=== PATIENT | male | born 1970 | race Caucasian/White ===

== ENCOUNTER 2016-04-19 20:51 | Emergency (ER) | payer OTHER ==
[2016-04-19 20:58] VITALS: BP 126/95
[2016-04-19] MEDS ORDERED: metroNIDAZOLE TAB* 250 MG PO ONE (23:06)
[2016-04-19] MEDS ORDERED: Ciprofloxacin TAB* 500 MG PO ONE (23:06)
--- NOTE | 2016-04-19 23:55 | UC ---
Aleta Bond Erika, scribed for Marge Leong DO on 04/19/16 at 2225 . Abdominal Pain Male HPI - HPI Summary HPI Summary: Patient is a 45-year-old male presenting to [facility] with a CC of LLQ abdominal pain for the past 3 days. Currently, he rates pain a 3/10, and describes it as dull/aching. Pain does not radiate. He reports that the pain feels the same as the last time he had diverticulitis. He reports 5-6 flare ups of diverticulitis in the 6 years since he has been diagnosed, 3-4 of which required antibiotics - he states he takes only cipro usually. He states that he came into [facility] because his temperature increased from 97.2 to 98.6. Pt also reports he had blood in his stool a few days ago, and he has a Hx hemorrhoids. His PCP sent in rx for suppository. 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 Pt denies N/V/D and urinary symptoms. He does report a slight cough and headache from a recent cold. Hx HTN. PSHx cholecystectomy. FHx HTN, DM, prostate CA. - History of Current Complaint Chief Complaint: UCAbdominalPain Stated Complaint: ABD PAIN Time Seen by Provider: 04/19/16 22:11 Hx Obtained From: Patient Onset/Duration: Gradual Onset, Lasting Days, Still Present Timing: Constant Severity Currently: Mild Pain Intensity: 3 Pain Scale Used: 0-10 Numeric Location: Discrete At: LLQ Radiates: No Character: Aching, Dull Aggravating Factor(s):: Food Alleviating Factor(s): Rest - bowel rest Associated Signs And Symptoms: Positive: Blood in Stool. Negative: Diaphoresis , Fever, Cough, Chest Pain, Back Pain, Constipation, Urinary Symptoms, Nausea, Vomiting, Diarrhea - Allergies/Home Medications Allergies/Adverse Reactions: Allergies Allergy/AdvReac Type Severity Reaction Status Date / Time Pseudoephedrine Allergy Swelling Verified 04/19/16 20:58 [From Sudafed] Of Face,Lips,& Throat Ibuprofen AdvReac Intermediate lowered BP Verified 04/19/16 20:58 Home Medications: Home Medications Lisinopril/HCTZ 20/12.5(NF) [Zestoretic 20/12.5(NF)] 1 tab PO DAILY 04/19/16 [ History Confirmed 04/19/16] PMH/Surg Hx/FS Hx/Imm Hx Endocrine History Of: Denies: Diabetes, Thyroid Disease Cardiovascular History Of: Reports: Hypertension Denies: Cardiac Disorders Respiratory History Of: Denies: COPD, Asthma GI/ History Of: Denies: Ulcer, Renal Disease - Surgical History Surgical History: Yes Surgery Procedure, Year, and Place: surgery to left foot - 5 pins to repair break. gallbladder - Family History Known Family History: Positive: Hypertension, Diabetes, Other - HIGH CHOLESTEROL , prostate CA - Social History Occupation: Employed Full-time Lives: With Family Alcohol Use: Occasionally Alcohol Amount: 1 beer weekly Substance Use Type: None Smoking Status (MU): Never Smoked Tobacco - Immunization History Most Recent Tetanus Shot: 2009 Review of Systems Constitutional: Negative Skin: Negative Eyes: Negative ENT: Negative Respiratory: Cough - recoverying from cold Cardiovascular: Negative Gastrointestinal: Abdominal Pain Genitourinary: Negative Motor: Negative Neurovascular: Negative Musculoskeletal: Negative Neurological: Headache Psychological: Negative All Other Systems Reviewed And Are Negative: Yes Physical Exam Triage Information Reviewed: Yes Appearance: Well-Appearing, No Pain Distress, Well-Nourished Vital Signs: Initial Vital Signs Temp 98.3 F 04/19/16 20:53 Pulse 97 04/19/16 20:53 Resp 16 04/19/16 20:53 BP 126/95 04/19/16 20:53 Pulse Ox 97 04/19/16 20:53 Vital Signs Reviewed: Yes Eyes: Positive: Conjunctiva Clear. Negative: Discharge ENT: Positive: Hearing grossly normal. Negative: Muffled/hoarse voice Neck: Positive: Supple, Nontender Respiratory: Positive: Lungs clear, Normal breath sounds, No respiratory distress, No accessory muscle use Cardiovascular: Positive: RRR, No Murmur Abdomen Description: Positive: Soft, Other: - LLQ point tenderness. Negative: Distended, Guarding Bowel Sounds: Positive: Present Musculoskeletal Exam: Normal Neurological: Positive: Alert, Muscle Tone Normal Psychological Exam: Normal Psychological: Positive: Age Appropriate Behavior Skin Exam: Other - Warm, dry, normal color Diagnostics - Laboratory Diagnostic Studies Completed/Ordered: UA negative Abd Pain Male Course/Dx - Course Course Of Treatment: Pt declined rectal exam - Differential Dx/Clinical Impression Differential Diagnosis/HQI/PQRI: Constipation, Diverticulitis, Renal Colic, Ureteral Stone, Urinary Tract Infection, Other - ibs Provider Diagnoses: diverticulitis Discharge - Discharge Plan Condition: Stable Disposition: HOME Prescriptions: Ciprofloxacin HCl [Cipro] 500 mg PO BID #13 tab Metronidazole [Flagyl 500 MG TAB] 500 mg PO TID #20 tab Patient Education Materials: Diverticulitis (ED) Referrals: Saul Watts MD [Primary Care Provider] - (FOLLOW UP ON 04/22/16.) Additional Instructions: METRONIDAZOLE: Metronidazole (Flagyl) has been prescribed. This medication is used to kill a type of bacteria called anaerobes, and protozoan parasites such as trichomonas and Giardia. Flagyl often causes a metallic taste in the mouth and mild nausea. Do not use alcohol in any form with Flagyl (including alcohol in medication elixirs). Flagyl interacts with alcohol to cause flushing, palpitations, headache, stomach cramps, and vomiting. Do not use Flagyl if you are taking Antabuse (disulfiram). Call the doctor at once if you develop rash, shortness of breath, itching, or lightheadedness. CIPROFLOXACIN: You have been given a new antibacterial agent, ciprofloxacin (Cipro). This medicine is not related to the penicillins, sulfas, cephalosporins, or tetracyclines. It is often given to patients who are allergic to these drugs. It has been chosen for you either because other drugs are not appropriate, or because of the nature of your problem. Cipro should not be taken with antacids, as these can decrease its effectiveness. It can be taken without regard to meals. CIPRO SHOULD NOT BE TAKEN BY CHILDREN, NURSING WOMEN, OR WOMEN. Although Cipro is usually well-tolerated, common side effects can include nausea and diarrhea. Contact your doctor if you experience any unusual symptoms while on this medication, such as joint pain or swelling, shortness of breath, wheezing, faintness, or hives. ANY TIME YOU TAKE AN ANTIBIOTIC, IT IS IMPORTANT TO REPLENISH THE BODY'S BALANCE OF "GOOD" BACTERIA BY EATING HIGH QUALITY CULTURED FOOD SUCH YOGURT, SAURKRAUT OR ROSEMARIE CHI AND/OR TAKING A PROBIOTIC SUPPLEMENT. The documentation as recorded by the Aleta wright Erika accurately reflects the service I personally performed and the decisions made by , Marge Leong DO.
[2016-04-20 12:13] LABS: Hematocrit 46 % (42-52); Hemoglobin 15.1 g/dl (14.0-18.0); Mean Corpuscular HGB Conc 33 g/dl (31-36); Mean Corpuscular Hemoglobin 29 pg (27-31); Mean Corpuscular Volume 89 fL (80-94); Mean Platelet Volume 10 um3 (7.4-10.4); Red Blood Count 5.14 10^6/ul (4.0-5.4); Red Cell Distribution Width 13 % (10.5-15); White Blood Count 11.3 10^3/ul (3.5-10.8)
[2016-04-20 13:07] LABS: Erythrocyte Sed Rate 13 mm/Hr (0-14)
== END 2016-04-19 22:24 | disposition home or self-care (01) ==
LOC: UCEAST 20:51
DX: K57.93 Diverticulitis of intestine, part unspecified, without perforation or abscess with bleeding (principal); I10 Essential (primary) hypertension; Z90.49 Acquired absence of other specified parts of digestive tract; Z88.6 Allergy status to analgesic agent; Z88.8 Allergy status to other drugs, medicaments and biological substances
CPT/HCPCS: 36415; 81002; 85025; 85652; 86141; 99212; A9270-GY; G0463